=== PATIENT | male | born 1940 | race Caucasian/White ===

== ENCOUNTER 2019-11-24 13:40 | Emergency (ER) | payer OTHER ==
[~2019-11-24] VITALS: Ht 167.6 cm; Wt 77.1 kg
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
[2019-11-24] MEDS ORDERED: ONDANSETRON HCL/PF - ER 4 MG/2 ML VIAL IV ONE (14:30)
[2019-11-24] MEDS ORDERED: HYDROMORPHONE 1 MG/1 ML DISP.SYRIN IV ONE (14:30)
[2019-11-24] MEDS ORDERED: HYDROMORPHONE 1 MG/1 ML DISP.SYRIN ONE (14:33)
[2019-11-24] MEDS ORDERED: ONDANSETRON HCL/PF 4 MG/2 ML VIAL ONE (14:33)
[2019-11-24 14:45] LABS: BASOPHILS # (AUTO) 0.1 /CMM (0.0-0.2); BASOPHILS % (AUTO) 1.2 % (0.0-2.0); EOSINOPHILS % (AUTO) 4.6 % (0.0-6.0); HEMATOCRIT 38 % (39-51); HEMOGLOBIN 12.3 g/dL (13.5-17.5); LYMPHOCYTES % (AUTO) 20.7 % (20.0-44.0); MEAN CORPUSCULAR HGB CONC 32 g/dl (31.0-36.0); MEAN CORPUSCULAR VOLUME 92 fL (80-96); MONOCYTES # (AUTO) 0.6 /CMM (0.1-1.30); MONOCYTES % (AUTO) 12.2 % (2.0-12.0); NEUTROPHILS # (AUTO) 2.8 /CMM (1.8-8.9); NEUTROPHILS % (AUTO) 61.3 % (43.0-81.0); PLATELET COUNT (AUTO) 225 /CMM (150-450); RED BLOOD CELL COUNT(AUTO) 4.15 MIL/uL (4.5-6.0); WHITE BLOOD COUNT (AUTO) 4.6 K/uL (4.3-11.0)
[2019-11-24 14:53] LABS: CALCIUM, SERUM 8.6 mg/dL (8.5-10.1)
--- NOTE | 2019-11-24 16:20 | NUR ---
CALLED [facility].
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
--- NOTE | 2019-11-24 16:49 | NUR ---
per dr montano, [facility] wants pt transferred to a trauma capable hospital, [facility] is giving auth for inpatient stay for observation.
--- NOTE | 2019-11-24 18:00 | NUR ---
CALLED [facility] ER CHARGE NURSE JERROD. AFTER FAXING INFO OF HEAD CT. PER TRAUMA SURGEON AT [facility], PT DOES NOT MEET TRAUMA CRITERIA.
--- NOTE | 2019-11-24 18:18 | NUR ---
CALLED [facility].
--- NOTE | 2019-11-24 18:42 | NUR ---
DR. HENDERSON FROM [facility] CALLED. PT WILL BE TRANSFERED TO [facility].
--- NOTE | 2019-11-24 19:02 | NUR ---
jacquelyn pc er dr higgins [phone] er for report 8pm xfer
[2019-11-24 19:23] VITALS: BP 151/76
--- NOTE | 2019-11-24 20:05 | NUR ---
report given to nina schmitt at [facility]
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
== END 2019-11-24 20:08 | disposition short-term general hospital (02) ==
LOC: ER 13:43
DX: S00.83XA Contusion of other part of head, initial encounter (principal); M54.5 Low back pain; M25.561 Pain in right knee; M25.551 Pain in right hip; E11.9 Type 2 diabetes mellitus without complications; I10 Essential (primary) hypertension; N40.0 Benign prostatic hyperplasia without lower urinary tract symptoms; E78.5 Hyperlipidemia, unspecified; G89.29 Other chronic pain; Z95.818 Presence of other cardiac implants and grafts; V49.49XA Driver injured in collision with other motor vehicles in traffic accident, initial encounter; Y93.89 Activity, other specified; Y92.413 State road as the place of occurrence of the external cause; Y99.8 Other external cause status
CPT/HCPCS: 36415; 70450; 71045; 72125; 72131; 72192; 73564; 73610; 80048; 85025; 85730; 93005; 96374; 96375; 99285; J1170; J2405 ×2